=== PATIENT | male | born 1995 | race Caucasian/White ===

== ENCOUNTER 2020-05-05 02:09 | Emergency (ER) | payer OTHER ==
[~2020-05-05] VITALS: Ht 175.3 cm; Wt 77.7 kg
[2020-05-05] MEDS ORDERED: MORPHINE 4 MG/ML 1ML VIAL/SYRINGE (J2270) IV PRN (02:30)
[2020-05-05] MEDS ORDERED: ONDANSETRON 4MG/2ML VIAL IV ONE (02:30)
[2020-05-05] MEDS ORDERED: NS 1,000 ML IV SCH (02:34)
[2020-05-05] MEDS ORDERED: KETAMINE HCL 200 MG/20 ML VIAL IV ONE (02:45)
[2020-05-05] MEDS: propofoL 200 MG/20 ML VIAL IV PRN ×2 (02:53→02:55)
--- NOTE | 2020-05-05 03:07 | REPVR ---
PROCEDURE INFORMATION: Exam: XR Right Elbow Exam date and time: 05/05/2020 2:35 AM Age: 25 years old Clinical indication: Pain; Elbow; Right; Additional info: Fall, deformity TECHNIQUE: Imaging protocol: XR Right elbow. Views: 3 or more views. COMPARISON: No relevant prior studies available. FINDINGS: Bones/joints: Dislocated elbow with posterior displacement of the radius and ulna. Linear areas of calcification adjacent to the anterior inferior humerus may represent small avulsion fracture fragments. Soft tissues: Large soft tissue edema at the elbow. IMPRESSION: Dislocated elbow with posterior displacement of the radius and ulna. Linear areas of calcification adjacent to the anterior inferior humerus may represent small avulsion fracture fragments. Large soft tissue edema at the elbow. Electronically signed by: Prisca Elaine On 05/05/2020 03:07:08 AM
--- NOTE | 2020-05-05 03:26 | REPVR ---
PROCEDURE INFORMATION: Exam: XR Right Elbow Exam date and time: 05/05/2020 3:09 AM Age: 25 years old Clinical indication: Pain; Elbow; Right; Additional info: Post reduction TECHNIQUE: Imaging protocol: XR Right elbow. Views: 3 or more views. COMPARISON: CR Elbow, Ap, Lat RIGHT 05/05/2020 2:28 AM FINDINGS: Bones/joints: Status post reduction of previously seen dislocation of the elbow. Moderate anterior and posterior joint effusion. On the lateral view, there are is a calcified density measuring 8.3 mm abutting the anterior radial head, however, findings cannot be seen on the AP view. No donor site is seen. Clinical correlation and if clinically concerned for acute fracture, further evaluation with CT scan is recommended. Soft tissues: Moderate soft tissue swelling. IMPRESSION: Status post reduction of previously seen dislocation of the elbow. Moderate anterior and posterior joint effusion. On the lateral view, there are is a calcified density measuring 8.3 mm abutting the anterior radial head, however, findings cannot be seen on the AP view. No donor site is seen. Clinical correlation and if clinically concerned for acute fracture, further evaluation with CT scan is recommended. Moderate soft tissue swelling. Electronically signed by: Prisca Elaine On 05/05/2020 03:25:37 AM
[2020-05-05] MEDS ORDERED: OXYCODONE/APAP 5MG/325MG(BULK FOR ED) 1 TABLET PO ONE (04:00)
[2020-05-05 04:05] VITALS: BP 130/64
== END 2020-05-05 04:12 | disposition home or self-care (01) ==
LOC: M ED 02:09
DX: S53.024A Posterior dislocation of right radial head, initial encounter (principal); S53.124A Posterior dislocation of right ulnohumeral joint, initial encounter; S52.91XA Unspecified fracture of right forearm, initial encounter for closed fracture; M24.421 Recurrent dislocation, right elbow; W01.0XXA Fall on same level from slipping, tripping and stumbling without subsequent striking against object, initial encounter; Y92.138 Other place on military base as the place of occurrence of the external cause; Y93.89 Activity, other specified; Y99.1 Military activity
CPT/HCPCS: 73070; 93041; 96361; 96374; 96375; 99152; 99285; J2270; J2405

== ENCOUNTER 2022-03-07 13:50 | Emergency (ER) | payer OTHER ==
[~2022-03-07] VITALS: Ht 175.3 cm; Wt 94.2 kg
[2022-03-07] MEDS ORDERED: KETOROLAC 30 MG/ML 1ML VIAL IM ONE (15:05)
[2022-03-07 16:01] VITALS: BP 118/73
== END 2022-03-07 16:03 | disposition home or self-care (01) ==
LOC: M ED 13:50
DX: T21.10XA Burn of first degree of trunk, unspecified site, initial encounter (principal); T21.16XA Burn of first degree of male genital region, initial encounter; L55.9 Sunburn, unspecified
CPT/HCPCS: 96374; 99283; J1885